=== PATIENT | male | born 1990 | race Caucasian/White ===

== ENCOUNTER 2020-05-08 06:34 | Inpatient (IN) | payer OTHER ==
[~2020-05-08] VITALS: Wt 70.3 kg
[2020-05-08 06:37] VITALS: BP 130/84
--- NOTE | 2020-05-08 07:05 | NUR ---
NURSE REPORT RECIEVED.
[2020-05-08 07:56] LABS: BASO # 0.1 10*3/uL (0.0-0.1); BASO % 0.4 % (0.0-1.0); EOS # 1.6 10*3/uL (0.0-0.4); EOS % 11.1 % (1.0-4.0); HEMATOCRIT 41.1 % (42.0-52.0); LYMPH % 14.2 % (27.0-41.0); MEAN CELL VOLUME 95.4 fl (80.0-94.0); MEAN CORPUSCULAR HGB CONC 33.6 g/dl (33.0-37.0); MEAN PLATELET VOLUME 9.9 fl (9.6-12.3); MONO % 7.3 % (3.0-9.0); NEUT # 9.3 10*3/uL (2.3-7.9); NEUT % 66.4 % (47.0-73.0); PLATELET COUNT AUTOMATED 234 10*3/uL (130-400); RED BLOOD COUNT 4.31 10*6/uL (4.50-5.90); RED CELL DISTRI WIDTH 12.9 % (0-14.5)
[2020-05-08 07:57] LABS: BILIRUBIN NEGATIVE (NEGATIVE); BLOOD NEGATIVE (NEGATIVE); CLARITY CLEAR (CLEAR); COLOR YELLOW (YELLOW); GLUCOSE NEGATIVE (NEGATIVE); KETONE NEGATIVE (NEGATIVE); LEUKO ESTERASE NEGATIVE (NEGATIVE); NITRITE NEGATIVE (NEGATIVE); PH 8.5 (5.0-9.0); UROBILINOGEN 0.2 E.U./dl (0.2-1.0)
[2020-05-08 08:01] LABS: EPITHELIAL CELLS 0-2; RBC 0-2 rbc/hpf (0-2)
[2020-05-08 08:12] LABS: ALBUMIN 3.2 gm/dl (3.1-4.5); ALKALINE PHOSPHATASE 109 U/L (45-117); BUN 4 mg/dl (7-24); CHLORIDE 101 mmol/L (98-107); CREATININE 0.75 mg/dL (0.70-1.30); POTASSIUM 4.2 mmol/L (3.5-5.1); SGOT/AST 69 IU/L (3-35); SGPT/ALT 125 U/L (12-78); SODIUM 132 mmol/L (136-145); TOTAL PROTEIN 7.7 gm/dL (6.4-8.2)
--- NOTE | 2020-05-08 08:50 | NUR ---
COVID PRECAUTION SIGN AND EMPLOYEE SIGN UP FORM PLACED ON DOOR AND DOOR CLOSED DUE TO POSSIBLE COVID, PER DR DREW.
--- NOTE | 2020-05-08 09:47 | NUR ---
PT HAS STATED MULTIPLE TIMES THAT HE PLANS LEAVING AMA. I URGED HIM TO DO SO SOONER RATHER THAN LATER BUT HE REMAINS UNDECIDED AT THIS TIME. UNABLE TO FIND DR TO UPDATE HIM.
[2020-05-08 10:07] VITALS: BP 136/66
--- NOTE | 2020-05-08 10:24 | NUR ---
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
[2020-05-08 13:30] VITALS: BP 110/66
--- NOTE | 2020-05-08 13:43 | NUR ---
MSADMTime: 1330 A 29 year old MALE admitted to 4E under services of JENNY CARRILLO DO. Pt. arrived via bed from ER. Chief complaint: COUGH. VIVIANA MARCH
--- NOTE | 2020-05-08 14:54 | NUR ---
ROBAXIN GIVEN FOR C/O MUSCLE ACHES, REQUIP GIVEN FOR C/O RESTLESS LEGS, VISTARIL GIVEN FOR C/O ANXIETY. WILL MONITOR.
--- NOTE | 2020-05-08 16:00 | NUR ---
ROBAXIN, VISTARIL, AND REQUIP EFFECTIVE PER PT.
--- NOTE | 2020-05-08 19:30 | NUR ---
PT RESTING IN ROOM. RESPS EASY AND NON LABORED. NO S/S OF DISTRESS NOTED. VSS. WHITE BOARD UPDATED. POC DISCUSSED W PT. STATES HE JUST FEELS ANXIOUS. A/O X3. NO TREMORS/DIAPHORESIS NOTED. WILL CONTINUE TO MONITOR. CALL LIGHT WITHIN REACH.
[2020-05-08 20:00] VITALS: BP 117/61
--- NOTE | 2020-05-08 21:17 | NUR ---
PT C/O 4/10 ACHING HEADACHE, ANXIETY AND MUSCLE CRAMPS. MEDICATED PER ORDER. WILL MONITOR FOR RELIEF. RESPS EASY AND NON LABORED. CALL LIGHT WITHIN REACH.
--- NOTE | 2020-05-08 23:04 | NUR ---
MEDICATIONS EFFECTIVE PER PT
[2020-05-09] VITALS: BP 102/59
[2020-05-09 05:16] LABS: ACT PARTIAL THROMBO TIME 30.6 SECONDS (20.0-32.1)
[2020-05-09 05:23] LABS: ALKALINE PHOSPHATASE 92 U/L (45-117); BUN 7 mg/dl (7-24); CHLORIDE 106 mmol/L (98-107); CHOLESTEROL 137 mg/dL (<200); CREATININE 0.76 mg/dL (0.70-1.30); HDL CHOLESTEROL 48 mg/dl (40-60); LDH 181 U/L (87-241); LDL CHOLESTEROL 79 mg/dL (9-159); POTASSIUM 4.3 mmol/L (3.5-5.1); SGOT/AST 68 IU/L (3-35); SGPT/ALT 116 U/L (12-78); SODIUM 139 mmol/L (136-145); TOTAL PROTEIN 7.5 gm/dL (6.4-8.2); TRIGLYCERIDES 50 mg/dl (<150); VLDL CHOLESTEROL 10 mg/dL (6-40)
[2020-05-09 05:29] LABS: FREE T4 0.91 ng/dl (0.76-1.46)
[2020-05-09 05:58] LABS: BASO # 0.1 10*3/uL (0.0-0.1); BASO % 0.6 % (0.0-1.0); EOS # 1.4 10*3/uL (0.0-0.4); EOS % 16.5 % (1.0-4.0); HEMATOCRIT 40.9 % (42.0-52.0); LYMPH # 1.8 10*3/uL (1.3-4.4); LYMPH % 21.2 % (27.0-41.0); MEAN CELL VOLUME 97.4 fl (80.0-94.0); MEAN CORPUSCULAR HGB 32.6 pg (27.0-31.0); MEAN CORPUSCULAR HGB CONC 33.5 g/dl (33.0-37.0); MEAN PLATELET VOLUME 10.5 fl (9.6-12.3); MONO # 0.8 10*3/uL (0.1-1.0); MONO % 9.3 % (3.0-9.0); NEUT # 4.4 10*3/uL (2.3-7.9); NEUT % 52.2 % (47.0-73.0); PLATELET COUNT AUTOMATED 231 10*3/uL (130-400); RED CELL DISTRI WIDTH 13.2 % (0-14.5); WHITE BLOOD COUNT 8.5 10*3/uL (4.8-10.8)
[2020-05-09 06:59] LABS: FERRITIN 139.4 ng/mL (22.0-322.0); VITAMIN D, 25-HYDROXY 26.8 ng/mL (30-100)
[2020-05-09 08:00] VITALS: BP 120/62
--- NOTE | 2020-05-09 11:46 | NUR ---
PER NURSE AT [facility] COVID TEST MUST BE NEGATIVE BEFORE PT CAN RETURN, INFORMED PT OF THIS
[2020-05-09 12:00] VITALS: BP 126/67
--- NOTE | 2020-05-09 13:05 | NUR ---
PT C/O OF ANXIETY AND PACING, PRN BENADRYL GIVEN PER ORDER
--- NOTE | 2020-05-09 13:17 | NUR ---
PER PT BENDRYL WAS EFFECTIVE
[2020-05-09 16:00] VITALS: BP 115/70
[2020-05-09 20:00] VITALS: BP 122/68
--- NOTE | 2020-05-09 21:10 | NUR ---
PT RESTING IN BED. POSITIONS SELF. C/O ANXIETY, RESTLESS LEGS, MUSCLE ACHES ALL OVER, REQUESTING SMOKING PATCH. MEDICATED WITH ROBAXIN, REQUIP, MOTRIN, VISTARIL AND NICOTINE PATCH, SEE EMAR. CALL LIGHT IN REACH. SEE SHIFT ASSESSMENT.
--- NOTE | 2020-05-09 22:08 | NUR ---
Patient resting. Responding to scheduled medications with fewer complaints of pain and anxiety. CALL LIGHT IN REACH.
--- NOTE | 2020-05-09 23:00 | NUR ---
PT AMBULATORY IN ROOM. RESP-EASY AND REGULAR. TOLERATED ROUTINE SUBUTEX, SEE EMAR. CALL LIGHT IN REACH. SEE SHIFT ASSESSMENT.
--- NOTE | 2020-05-10 06:10 | NUR ---
PT RESTING IN BED, UP TO SHOWER. NO C/O AT THIS TIME. CALL LIGHT IN REACH.
[2020-05-10 06:35] LABS: BASO % 0.7 % (0.0-1.0); EOS # 1.1 10*3/uL (0.0-0.4); EOS % 18.7 % (1.0-4.0); HEMATOCRIT 43.4 % (42.0-52.0); LYMPH # 1.7 10*3/uL (1.3-4.4); LYMPH % 28.2 % (27.0-41.0); MEAN CELL VOLUME 96.9 fl (80.0-94.0); MEAN CORPUSCULAR HGB 31.9 pg (27.0-31.0); MEAN CORPUSCULAR HGB CONC 32.9 g/dl (33.0-37.0); MEAN PLATELET VOLUME 9.8 fl (9.6-12.3); MONO # 0.7 10*3/uL (0.1-1.0); MONO % 10.6 % (3.0-9.0); NEUT # 2.5 10*3/uL (2.3-7.9); NEUT % 41.5 % (47.0-73.0); PLATELET COUNT AUTOMATED 270 10*3/uL (130-400); RED BLOOD COUNT 4.48 10*6/uL (4.50-5.90); WHITE BLOOD COUNT 6.1 10*3/uL (4.8-10.8)
[2020-05-10 06:54] LABS: CHLORIDE 105 mmol/L (98-107); POTASSIUM 3.9 mmol/L (3.5-5.1); SODIUM 138 mmol/L (136-145)
[2020-05-10 07:00] LABS: ALBUMIN 3.1 gm/dl (3.1-4.5); ALKALINE PHOSPHATASE 106 U/L (45-117); BUN 14 mg/dl (7-24); CREATININE 0.76 mg/dL (0.70-1.30); SGOT/AST 94 IU/L (3-35); SGPT/ALT 145 U/L (12-78); TOTAL PROTEIN 8.1 gm/dL (6.4-8.2)
--- NOTE | 2020-05-10 07:30 | NUR ---
PT RESTING IN BED. RESPS EASY AND NON LABORED. NO S/S OF DISTRESS NOTED. VSS. WHITE BOARD UPDATED. POC DISCUSSED W PT. CALL LIGHT WITHIN REACH. WILL CONTINUE TO MONITOR
[2020-05-10 08:00] VITALS: BP 114/66
--- NOTE | 2020-05-10 09:04 | NUR ---
PT C/O RESTLESS LEGS,MUSCLE SPASMS AND ANXIETY. MEDICATED PER ORDER. WILL MONITOR FOR RELIEF. VOCIES NO OTHER CONCERNS AT THIS TIME. RESPS EASY. CALL LIGHT WITHIN REACH
--- NOTE | 2020-05-10 10:00 | NUR ---
MEDICATIONS EFFECTIVE PER PT
[2020-05-10 12:00] VITALS: BP 133/67
--- NOTE | 2020-05-10 12:07 | NUR ---
Radha from [employer] has requested clinicals to be faxed on this patient. Faxed clinicals to Naman/tequila Garcia @ [phone]
[2020-05-10] MEDS ORDERED: AUGMENTIN 875875 MG PO (14:14)
--- NOTE | 2020-05-10 14:26 | NUR ---
PT C/O INCREASING ANXIETY. MEDICATED PER ORDER. WILL MONITOR FOR RELIEF. RESPS EASY AND NON LABORED. CALL LIGHT WITHIN REACH.
--- NOTE | 2020-05-10 15:13 | NUR ---
BENEDRYL MOSTLY EFFECTIVE PER PT
--- NOTE | 2020-05-10 15:40 | NUR ---
PT MEDICATED FOR ANXIETY AND MUSCLE CRAMPS. WILL CONTINUE TO MONITOR. RESPS EASY AND NON LABORED. NO S/S OF DISTRESS NOTED. CALL LIGHT WITHIN REACH
[2020-05-10 16:00] VITALS: BP 132/70
--- NOTE | 2020-05-10 16:33 | NUR ---
MEDICATIONS EFFECTIVE PER PT
[2020-05-10 20:00] VITALS: BP 133/93
--- NOTE | 2020-05-10 20:05 | NUR ---
PT ANXIOUS, RESTLESS IN ROOM. C/O ACHES. MEDICATED WITH REQUIP FOR RESTLESS LEGS, MOTRIN FOR ACHES ALL OVER AND BENTYL FOR UPSET STOMACH. SEE EMAR. CALL LIGHT IN REACH.
--- NOTE | 2020-05-10 21:00 | NUR ---
Patient resting. Responding to scheduled medications with fewer complaints of pain and anxiety. CALL LIGHT IN REACH.
[2020-05-11] VITALS: BP 124/64
--- NOTE | 2020-05-11 | NUR ---
RESTING IN BED. RESP-EASY AND REGULAR. MEDICATIONS SEEMS TO BE EFFECTIVE. CALL LIGHT IN REACH.
--- NOTE | 2020-05-11 06:00 | NUR ---
RESTING IN BED WITH EYES CLOSED. RESP-EASY AND REGULAR. CALL LIGHT IN REACH.
[2020-05-11 07:23] LABS: CHLORIDE 103 mmol/L (98-107); POTASSIUM 4.7 mmol/L (3.5-5.1); SODIUM 136 mmol/L (136-145)
--- NOTE | 2020-05-11 07:30 | NUR ---
PT RESTING IN BED.RESPS EASY AND NON LABORED. NO S/S OF DISTRESS NOTED. VSS. WHITE BOARD UPDATED. POC DISCUSSED W PT. CALL LIGHT WITHIN REACH. A/O X3. NOTED BE SLIGHTY ANXIOUS. PT STATES HE WANTS TO GO BACK TO [facility] WHERE HE CAN PARTICIPATE IN HIS GROUP THERAPY AND THAT BEING STUCK IN THIS ROOM WITH NOONE TO TALK TO IS DRIVING HIM CRAZY. TALK W PT AND EXPLAINED THAT ONCE HIS COVID-19 SWAB COMES BACK THAT HE WILL BE ABLE TO GO. PT UNDERSTANDS. WILL CONTINUE TO MONITOR.
[2020-05-11 07:43] LABS: ALBUMIN 3.4 gm/dl (3.1-4.5); ALKALINE PHOSPHATASE 98 U/L (45-117); BUN 17 mg/dl (7-24); CREATININE 0.75 mg/dL (0.70-1.30); SGOT/AST 105 IU/L (3-35); SGPT/ALT 166 U/L (12-78); TOTAL PROTEIN 8.1 gm/dL (6.4-8.2)
[2020-05-11 08:00] VITALS: BP 113/79
--- NOTE | 2020-05-11 09:00 | NUR ---
PTS COVID TEST NEGATIVE.PT VERY JOYFUL.
--- NOTE | 2020-05-11 09:15 | NUR ---
PT CALLED [facility] TO CHECK TO SEE IF THEY STILL HAD A BED THERE FOR HIM. STATED THEY DID NOT. PT BECAME VERY AGITATED AND STATED "WELL WHAT THE F#$K DO YOU WANT ME TO DO NOW" AND PROCEEDED TO THROW HIS CELL PHONE AT THE WALL. DISCUSSED THIS BEHAVIOR WITH HIM. PT APOLOGETIC. STATES HE DOES NOT WANT TO RELAPSE AGAIN. EXPLAINED TO HIM THAT I WOULD CONTACT SS AND THEY COULD SET SOMETHING UP FOR HIM. PT AGREEABLE AND CALMED DOWN AT THIS TIME. WILL CONTINUE TO MONIOR.
[2020-05-11] MEDS ORDERED: VITAMIN D350 MC2 PO (09:29)
[2020-05-11] MEDS ORDERED: ATARAX,VISTARIL50 MG PO (09:29)
[2020-05-11] MEDS ORDERED: ZOFRAN4 MG PO (09:33)
--- NOTE | 2020-05-11 09:33 | NUR ---
PT C/O RESTLESS LEGS,ANXIETY,GEN PAIN, AND MUSCLE CRAMPS. MEDICATED PER ORDER . WILL MONIOR FOR RELIEF. CALL LIGHT WITHIN REACH.
--- NOTE | 2020-05-11 09:34 | NUR ---
Contacted [facility] and spoke to admissions. I asked if they were still holding a bed for this patient. She stated they can no longer take him back because he has been here for over 24 hours. They stated they are a 7 day detox and patient has met his 7 days so he should be detoxed now. She also stated they do have a residential side, but there are no openings at this time. I contacted Noa at [facility] and explained to her this patient verbalized to the nurse today that he wanted to return to the [facility] today. She stated she will meet with this patient and offer him other options and then let CM know.
--- NOTE | 2020-05-11 10:23 | NUR ---
MEDICATIONS APPEAR EFFECTIVE. PT RESTING IN BED. RESPS EASY AND NON LABORED. CALL LIGHT WITHIN REACH/
[2020-05-11 12:00] VITALS: BP 118/78
--- NOTE | 2020-05-11 12:59 | NUR ---
SPOKE WITH [facility] WHO STATE THAT PT OPTED TO GO TO [facility] ON DISCHARGE. PROCESS STARTED. WILL LIKELY DISCHARGE TOMORROW.
--- NOTE | 2020-05-11 14:12 | NUR ---
PT PACING IN HALLWAYS REQUESTING SOMETHING FOR ANXIETY. MEDICATED PER ORDER. WILL MONITOR FOR RELIEF. RESPS EASY AND NON LABORED. CALL LIGHT WITIN REACH.
--- NOTE | 2020-05-11 14:32 | NUR ---
[facility] STAFF IN TO SEE PATIENT. PATIENT HAS BEEN ACCEPTED TO [facility] FOR RESIDENTIAL TREATMENT. [facility] STAFF WILL SET UP TRANSPORATION THROUGH HIS INSURANCE FOR TOMORROW MORNING. HELENA NGUYEN B.A. GREEN CHAIN OPERATOR
[2020-05-11 16:00] VITALS: BP 117/84
--- NOTE | 2020-05-11 16:32 | NUR ---
PT C/O MUSCLES ACHES AND ANXIETY. MEDICATED PER ORDER. WILL MONITOR FOR RELIEF. RESPS EASY AND NON LABORED. SITTING UP IN BED. CALL LIGHT WITHIN REACH.
--- NOTE | 2020-05-11 17:13 | NUR ---
MEDICATIONS EFFECTIVE PER PT
--- NOTE | 2020-05-11 17:28 | NUR ---
PT ASKING TO WALK OUTSIDE TO GET SOME FRESH AIR. CALLED [employer] INSTRUCTOR WHO STATES IT IS AGAINST POLICY.
[2020-05-11 20:00] VITALS: BP 112/77
--- NOTE | 2020-05-11 23:47 | NUR ---
MEDICATED WITH BENADRYL, REQUIP & VISTARIL.
[2020-05-12] VITALS: BP 123/89
[2020-05-12 08:00] VITALS: BP 107/72
[2020-05-12 12:00] VITALS: BP 145/80
--- NOTE | 2020-05-12 12:23 | NUR ---
case management talked with Claribel from [facility] regarding placement for patient due to him not being able to return to [facility]. Claribel has been working and patient is able to go [facility] today, claribel will make transportation arrangements with patient's insurance
--- NOTE | 2020-05-12 12:40 | NUR ---
NVPatient discharged in stable condition, referral letter provided to patient with specific instructions and appointment for ongoing treatment. Patient verbalizes understanding of discharge plan, IN REMOVED ESCORTED OUT BY PA. PERSCRIPTIONS GIVEN.
== END 2020-05-12 12:40 | disposition home or self-care (01) | DRG 720 ==
LOC: ED 06:34 → EDHOLD 08:47 → 4E 08:47 → EDHOLD 09:18 → 4E 12:55
PROVIDERS: Emergency Medicine; Internal Medicine; Student in an Organized Health Care Education/Training Program; ADMIT Internal Medicine
DX: A41.9 Sepsis, unspecified organism (principal); T50.901A Poisoning by unspecified drugs, medicaments and biological substances, accidental (unintentional), initial encounter; F15.10 Other stimulant abuse, uncomplicated; E87.1 Hypo-osmolality and hyponatremia; R73.9 Hyperglycemia, unspecified; R74.0 Nonspecific elevation of levels of transaminase and lactic acid dehydrogenase [LDH]; F11.19 Opioid abuse with unspecified opioid-induced disorder; Z20.828 Contact with and (suspected) exposure to other viral communicable diseases; J69.0 Pneumonitis due to inhalation of food and vomit; F17.210 Nicotine dependence, cigarettes, uncomplicated; Y92.89 Other specified places as the place of occurrence of the external cause; Z82.3 Family history of stroke